=== PATIENT | male | born 1995 | race Caucasian/White ===

== ENCOUNTER 2023-04-01 10:53 | Day surgery (SDC) | payer OTHER ==
[~2023-04-01] VITALS: Ht 167.6 cm; Wt 85.5 kg
[~2023-04-01 10:53] MED LIST: ELIQ5TAB PO; FAMO20TA PO; NS 1,000 ML IV ONE; OMEP40CA4 PO
[2023-04-01] MEDS ORDERED: LIDOCAINE 2% 100MG/5ML SDV (FOR ANES.) As Ordered ONE (11:20)
[2023-04-01] MEDS ORDERED: propofoL 500 MG/50 ML VIAL As Ordered ONE (11:20)
[2023-04-01] MEDS ORDERED: fentaNYL 100 MCG/2 ML INJECTION As Ordered ONE (11:21)
[2023-04-01 12:46] VITALS: TEMP 97.5
[2023-04-01 13:00] VITALS: BP 115/64; O2SAT 97
== END 2023-04-01 13:24 | disposition home or self-care (01) ==
LOC: M OPP 10:53
PROVIDERS: ATTEND Internal Medicine Gastroenterology
DX: K64.8 Other hemorrhoids (principal); D12.0 Benign neoplasm of cecum; R19.7 Diarrhea, unspecified; R10.9 Unspecified abdominal pain; K44.9 Diaphragmatic hernia without obstruction or gangrene; K31.89 Other diseases of stomach and duodenum; Z79.01 Long term (current) use of anticoagulants; Z79.83 Long term (current) use of bisphosphonates
CPT/HCPCS: 43239; 45380; 45385; 88305; J3010